=== PATIENT | male | born 1980 | race Caucasian/White ===

== ENCOUNTER 2019-08-27 12:47 | Emergency (ER) | payer MEDICAID ==
[2019-08-27] MEDS ORDERED: Sodium Chloride 0.9% 10 ML Syringe FLUSH PRN (13:46)
[2019-08-27] MEDS ORDERED: Dexamethasone 10 MG/ML SDV IVPUSH ONE (13:46)
[2019-08-27] MEDS ORDERED: Ketorolac 15 MG/ML SDV IVPUSH ONE (13:46)
[2019-08-27] MEDS ORDERED: Metoclopramide 10 MG/2 ML SDV IVPUSH ONE (13:46)
[2019-08-27] MEDS ORDERED: diphenhydrAMINE 50 MG/ML SDV IVPUSH ONE (13:46)
[2019-08-27] MEDS ORDERED: Sodium Chloride 0.9% 1,000 ML IV ONE (13:46)
[2019-08-27] MEDS ORDERED: Sodium Chloride 0.9% 2.5 ML Syringe FLUSH PRN (13:46)
[2019-08-27] MEDS ORDERED: oxyCODONE 5 MG Tab PO ONE (15:12)
--- NOTE | 2019-08-27 15:16 | EDM.PDOC ---
ED HPI GENERAL MEDICAL PROBLEM - General Chief Complaint: Headache Stated Complaint: MED REFIL Time Seen by Provider: 08/27/19 13:25 - History of Present Illness INITIAL COMMENTS - FREE TEXT/NARRATIVE: History of present illness: 39-year-old male presenting with ongoing/chronic headache exacerbated over the last few days. The patient reports history of TBI and neck injuries and a somewhat chronic migraine type symptoms. His pain regimen at home is oxycodone 30 mg, 12 tablets/day, additional oxycodone 15 mg up to 9 tablets/day, and methadone 30. Apparently the patient just moved here from [place] and ran out of all his medications. He called his neurologist who declined to refill his narcotic prescriptions and therefore he is presenting here requesting refill for his headache. Review of systems: As per history of present illness and below otherwise all systems reviewed and negative. Past medical history: As per history of present illness and as reviewed below otherwise noncontributory. TBI, neck injury Surgical history: As per history of present illness and as reviewed below otherwise noncontributory. Social history: No reported history of drug or alcohol abuse. Family history: As per history of present illness and as reviewed below otherwise noncontributory. Physical exam: GEN: no acute distress, well appearing HEENT: Atraumatic, normocephalic, mucous membranes moist Neck: supple, no meningismus. Lungs: No respiratory distress. Heart: RRR Extremities: Atraumatic. Neurovascularly intact. Neuro: Awake, alert, oriented. Neuro Exam nonfocal. Psych: No anxiety or depression, normal mood and affect Skin: warm, dry, no lesions Diagnostics: Not indicated Therapeutics: Toradol, Reglan, Decadron, IV fluids, Benadryl, oxycodone. MDM: Impression: Headache Plan: Definitive disposition and diagnosis as appropriate pending reevaluation and review of above. Headache Pain Score (Numeric/FACES): 10 - Related Data Allergies Allergy/AdvReac Type Severity Reaction Status Date / Time No Known Allergies Allergy Verified 08/27/19 14:03 Home Meds: Home Meds Methadone 30 mg PO DAILY 08/27/19 [History] oxyCODONE HCl [Oxycodone HCl] 15 mg PO ASDIRECTED 08/27/19 [History] oxyCODONE HCl [Oxycodone HCl] 120 mg PO Q4HR 08/27/19 [History] Past Medical History HEENT History: Reports: None Cardiovascular History: Reports: None Respiratory History: Reports: None Gastrointestinal History: Reports: None Genitourinary History: Reports: None Musculoskeletal History: Reports: None Neurological History: Reports: Brain Injury, Head Trauma, Migraines, Neuropathy, Peripheral Psychiatric History: Reports: Anxiety, Panic Attack Endocrine/Metabolic History: Reports: None Hematologic History: Reports: None Immunologic History: Reports: None Oncologic (Cancer) History: Reports: None Dermatologic History: Reports: None - Infectious Disease History Infectious Disease History: Reports: None - Past Surgical History Head Surgeries/Procedures: Reports: None Neurological Surgical History: Reports: C-Spine Social & Family History - Tobacco Use Smoking Status *Q: Current Some Day Smoker Years of Tobacco use: 16 Packs/Tins Daily: 0.2 - Recreational Drug Use Recreational Drug Use: Yes Drug Use in Last 12 Months: Yes Recreational Drug Type: Reports: Marijuana/Hashish Recreational Drug Use Frequency: Daily ED ROS GENERAL - Review of Systems Review Of Systems: See Below (see HPI) - Physical Exam Exam: See Below (See HPI) Course - Vital Signs Text/Narrative:: The patient is presenting with headache, requesting high level narcotic medication refills for his migraine that were denied by his own primary neurologist. I discussed at length with the patient that I would not be able to refill any of his narcotic prescriptions as he is being treated for chronic pain and will need to follow-up with his neurologist and/or see pain management. He does report that he has a pain management physician appointment in 8 days. The patient was concerned because he previously had a severe withdrawal syndrome several months ago and required ICU admission, however he does report that at that time he was taking benzodiazepines and the severe withdrawal was likely to benzodiazepines. Will give patient Toradol/Reglan/IV fluids/Decadron/Benadryl and intranasal lidocaine as well as his baseline narcotic dose. Last Recorded V/S: Last Vital Signs Temp 98.4 F 08/27/19 13:00 Pulse 68 08/27/19 13:00 Resp 16 08/27/19 13:00 BP 124/77 08/27/19 13:00 Pulse Ox 95 08/27/19 13:00 - Orders/Labs/Meds Orders: Active Orders 24 hr Category Date Time Status Saline Lock Insert [OM.PC] Stat Oth 08/27/19 13:46 Ordered Meds: Medications Discontinued Medications Generic Name Dose Route Start Last Admin Trade Name Suzy PRN Reason Stop Dose Admin Dexamethasone 8 mg 08/27/19 13:46 08/27/19 14:06 Dexamethasone IVPUSH 08/27/19 13:47 8 mg ONETIME ONE Administration Diphenhydramine HCl 50 mg 08/27/19 13:46 08/27/19 14:06 Benadryl IVPUSH 08/27/19 13:47 50 mg ONETIME ONE Administration Sodium Chloride 1,000 mls @ 999 mls/hr 08/27/19 13:46 08/27/19 14:05 Normal Saline IV 08/27/19 14:46 999 mls/hr .Bolus ONE Administration Ketorolac Tromethamine 30 mg 08/27/19 13:46 08/27/19 14:05 Toradol IVPUSH 08/27/19 13:47 30 mg ONETIME ONE Administration Lidocaine HCl 0 ml 08/27/19 16:00 08/27/19 16:07 Xylocaine 4% Top Soln TOP 08/27/19 16:01 1 ml ONETIME ONE Administration Metoclopramide HCl 10 mg 08/27/19 13:46 08/27/19 14:05 Reglan IVPUSH 08/27/19 13:47 10 mg ONETIME ONE Administration Oxycodone HCl 30 mg 08/27/19 15:12 08/27/19 16:03 Oxycodone PO 08/27/19 15:13 30 mg ONETIME ONE Administration Oxycodone HCl 30 mg 08/27/19 15:46 08/27/19 20:08 Oxycodone PO 08/27/19 15:47 Not Given ONETIME ONE Sodium Chloride 10 ml 08/27/19 13:46 08/27/19 14:06 Saline Flush FLUSH 10 ml ASDIRECTED PRN Administration Keep Vein Open Sodium Chloride 2.5 ml 08/27/19 13:46 08/27/19 14:06 Saline Flush FLUSH 2.5 ml ASDIRECTED PRN Administration Keep Vein Open - Re-Assessments/Exams Free Text/Narrative Re-Assessment/Exam: 08/27/19 15:12 Pain not improved. Additional medication ordered. 08/27/19 17:13 Assessed the patient. His pain is moderately improved. He does report that he is still having pain, however I discussed with the patient that given his high level narcotic pain regimen it is unlikely that he will achieve complete pain relief here and he does report that it is at a tolerable level where he feels well enough and would like to be discharged home. We discussed plan of follow-up care, I discussed recommendations for neurology and pain management follow-up given the patient's current regimen and need to taper high-level narcotic use. The patient does agree to do so and reports that he has an appointment with pain management within the next 10 days. We discussed the symptoms of withdrawal, what to watch out for and when to return to the emergency department if he develops any of the symptoms or any o ther concerning symptoms for a further evaluation. Neurologic examination on reassessment is unremarkable. Departure - Departure Time of Disposition: 17:14 Disposition: Home, Self-Care 01 Clinical Impression: Headache - Discharge Information Instructions: Tension Headache, Adult, [id number], Cluster Headache, Form - Headache Record, Recurrent Migraine Headache, [id number], Analgesic Rebound Headache, Pain Medicine Instructions, [id number] Referrals: PCP,Not In Area [Primary Care Provider] - Forms: ED Department Discharge Additional Instructions: The following information is given to patients seen in the emergency department who are being discharged to home. This information is to outline your options for follow-up care. We provide all patients seen in our emergency department with a follow-up referral. The need for follow-up, as well as the timing and circumstances, are variable depending upon the specifics of your emergency department visit. If you don't have a primary care physician on staff, we will provide you with a referral. We always advise you to contact your personal physician following an emergency department visit to inform them of the circumstance of the visit and for follow-up with them and/or the need for any referrals to a consulting specialist. The emergency department will also refer you to a specialist when appropriate. This referral assures that you have the opportunity for follow-up care with a specialist. All of these measure are taken in an effort to provide you with optimal care, which includes your follow-up. Under all circumstances we always encourage you to contact your private physician who remains a resource for coordinating your care. When calling for follow-up care, please make the office aware that this follow-up is from your recent emergency room visit. If for any reason you are refused follow-up, please contact the [facility] Emergency Department at and asked to speak to the emergency department charge nurse. [facility] - Primary Care [address], [place] [address] [facility] [address] [place] [id number] [facility] - Neurology Professional Building [address] [place] [address], [address] [place] [address] Sepsis Event Note (ED) - Evaluation Sepsis Screening Result: No Definite Risk - My Orders Last 24 Hours: My Active Orders 08/27/19 13:46 Saline Lock Insert [OM.PC] Stat - Assessment/Plan Last 24 Hours: My Active Orders 08/27/19 13:46 Saline Lock Insert [OM.PC] Stat
[2019-08-27] MEDS ORDERED: oxyCODONE 5 MG/5 ML Cup PO ONE (15:46)
[2019-08-27] MEDS ORDERED: Lidocaine 4% Top Soln 50 ML Bottle TOP ONE (16:00)
== END 2019-08-27 17:30 | disposition home or self-care (01) ==
LOC: MW.ED 12:47
DX: R51 Headache (principal); F17.210 Nicotine dependence, cigarettes, uncomplicated; G62.9 Polyneuropathy, unspecified; Z79.899 Other long term (current) drug therapy
CPT/HCPCS: 96374; 96375; 99283; 99284-25; A9270-GY; J1100; J1200; J1885; J2765; J7030

== ENCOUNTER 2019-09-03 05:40 | Emergency (ER) | payer OTHER ==
[2019-09-03] MEDS ORDERED: fentaNYL 50 MCG/ML SDV IVPUSH ONE (06:09)
[2019-09-03] MEDS ORDERED: Sodium Chloride 0.9% 10 ML Syringe FLUSH PRN (06:09)
[2019-09-03] MEDS ORDERED: Sodium Chloride 0.9% 2.5 ML Syringe FLUSH PRN (06:09)
[2019-09-03] MEDS ORDERED: Ondansetron 4 MG/2 ML SDV IVPUSH ONE (06:09)
[2019-09-03] MEDS ORDERED: Sodium Chloride 0.9% 1,000 ML IV ONE (06:12)
--- NOTE | 2019-09-03 06:16 | EDM.PDOC ---
<Anupam Rico - Last Filed: 09/03/19 07:37> ED HPI GENERAL MEDICAL PROBLEM - General Chief Complaint: Flank Pain Stated Complaint: KIDNEY PAIN Time Seen by Provider: 09/03/19 05:47 - History of Present Illness INITIAL COMMENTS - FREE TEXT/NARRATIVE: History of present illness: [] Patient just recently moved here because his father got a teaching job. 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 He told the nurse he does not have any narcotic abuse history. The patient severe diffuse abdominal pain increasing gradually over 3 days. It is sharp and severe in his back and radiates to his scrotum. He has vomited multiple times and has several loose stools a day. The patient was seen here 27 August 2019 for a migraine headache and withdrawal from his narcotic pain medicines that were given by methadone maintenance clinic in his prior town. She has an appointment with a neurologist in 2 days. The patient has not planned to go to the methadone maintenance clinic because the nearest 1 is too far away for him to go to. Apparently it is in [place]. The patient says he has contacted biochemistry specialist in this area none of them do methadone maintenance. Patient's migraine is under control with medications that are prior ER doctor gave him to tide him over until he sees the neurologist. Review of systems: As per history of present illness and below otherwise all systems reviewed and negative. Past medical history: As per history of present illness and as reviewed below otherwise noncontributo ry. Surgical history: As per history of present illness and as reviewed below otherwise noncontributory. Social history: No reported history of drug or alcohol abuse. Family history: As per history of present illness and as reviewed below otherwise noncontributory. Physical exam: Constitutional - well developed, well-nourished and in no acute distress HEENT - normocephalic, no evidence of trauma - external nose and mouth normal - no mass in neck and no JVD - mucosae moist EYES - full EOM, PERRL, no icterus - no evidence of inflammation, injection, or drainage Respiratory - no respiratory distress, equal bilateral expansion, lungs clear to auscultation and no abnormal lung sounds Cardiovascular - Regular Rhythm with S1 and S2 appreciated and no murmur, gallop or rub. Peripheral pulses symmetrically normal in all four extremities GI -diffuse direct tenderness with no rebound or referred tenderness. Sounds are somewhat diminished. Abdomen soft without distension or organomegaly - no guard or rebound You normal external genitalia except for 2 small apparent lipomas on the shaft of the penis. There is no hernia. Musculoskeletal no gross deformity of long bones or joints - no tenderness, swelling or edema Neurologic - Alert and oriented times four - CN II-XII grossly intact - motor sensory and coordination symmetrically normal Psychiatric - appropriate mood and affect with normal thought content Hematologic - No petechiae or purpura - mucosa appropriate color and sclera not pale - normal nail bed color and refill Integument - no rash or evidence of trauma - normal turgor Diagnostics: [] Therapeutics: [] Impression: [] Plan: [] Definitive disposition and diagnosis as appropriate pending reevaluation and review of above. Bilateral Flank Pain Score (Numeric/FACES): 10 - Related Data Allergies Allergy/AdvReac Type Severity Reaction Status Date / Time No Known Allergies Allergy Verified 09/03/19 05:59 Home Meds: Home Meds Methadone 30 mg PO DAILY 08/27/19 [History] oxyCODONE HCl [Oxycodone HCl] 15 mg PO ASDIRECTED 08/27/19 [History] oxyCODONE HCl [Oxycodone HCl] 120 mg PO Q4HR 08/27/19 [History] Acetaminophen [Acetaminophen Extra Strength] 500 - 1,000 mg PO Q6H PRN #30 tablet 09/03/19 [Rx] Loperamide HCl [Imodium A-D] 2 mg PO Q4H PRN #20 tablet 09/03/19 [Rx] Ondansetron [Zofran] 4 mg PO Q8H PRN #15 tab 09/03/19 [Rx] Potassium Chloride 40 meq PO DAILY 5 Days #10 packet 09/03/19 [Rx] Past Medical History HEENT History: Reports: None Cardiovascular History: Reports: None Respiratory History: Reports: None Gastrointestinal History: Reports: None Genitourinary History: Reports: None Musculoskeletal History: Reports: None Neurological History: Reports: Brain Injury, Head Trauma, Migraines, Neuropathy, Peripheral Psychiatric History: Reports: Anxiety, Panic Attack Endocrine/Metabolic History: Reports: None Hematologic History: Reports: None Immunologic History: Reports: None Oncologic (Cancer) History: Reports: None Dermatologic History: Reports: None - Infectious Disease History Infectious Disease History: Reports: None - Past Surgical History Head Surgeries/Procedures: Reports: None Neurological Surgical History: Reports: C-Spine Social & Family History - Family History Family Medical History: Noncontributory - Tobacco Use Smoking Status *Q: Never Smoker - Recreational Drug Use Recreational Drug Use: No ED ROS GENERAL - Review of Systems Review Of Systems: Comprehensive ROS is negative, except as noted in HPI. ED EXAM, GENERAL - Physical Exam Exam: See Below Free Text/Narrative:: Physical exam as in the HPI Departure - Departure Disposition: Home, Self-Care 01 Clinical Impression: Acute diarrhea, Hypokalemia, Acute renal insufficiency, Muscle cramps - Discharge Information Prescriptions: Acetaminophen [Acetaminophen Extra Strength] 500 - 1,000 mg PO Q6H PRN #30 tablet PRN Reason: Pain (Mild 1-3) Loperamide HCl [Imodium A-D] 2 mg PO Q4H PRN #20 tablet PRN Reason: Diarrhea Potassium Chloride 40 meq PO DAILY 5 Days #10 packet Ondansetron [Zofran] 4 mg PO Q8H PRN #15 tab PRN Reason: Nausea/Vomiting Instructions: Muscle Cramps and Spasms, [id number]-[id number], Hypokalemia, Food Choices to Help Relieve Diarrhea, Adult, Leg Cramps, Diarrhea, Adult, [id number] Referrals: [facility] - [facility] Practice [Provider Group] - 1 Week (For follow-up of low potassium and elevated creatinine.) Forms: ED Department Discharge Additional Instructions: Thank you for choosing the [facility] emergency department in [place] for your medical needs today. It was a pleasure caring for you. You were seen in the emergency department for several complaints. We noted that your potassium level is low and your creatinine level was high. This could be due to having diarrhea for quite a while. It also could be made worse by mild dehydration. We gave you IV fluids along with IV magnesium, IV potassium, and some medications for your muscle cramping. I am going to prescribe some medications for diarrhea, nausea and vomiting, and a couple more days of potassium supplementation. I will also encourage him to increase his fluid intake. He will follow-up with the family medicine clinic in the next week or so to have his labs rechecked. Please return the emergency department immediately if your symptoms worsen or if you feel worse. The following information is given to patients seen in the emergency department who are being discharged. This information is to outline your options for follow-up care. We provide all patients seen in our emergency department with a follow-up referral. The need for follow-up, as well as the timing and circumstances, are variable depending upon the specifics of your emergency department visit. If you don't have a primary care physician on staff, we will provide you with a referral. We always advise you to contact your personal physician following an emergency department visit to inform them of the circumstance of the visit and for follow-up with them and/or the need for any referrals to a consulting specialist. The emergency department will also refer you to a specialist when appropriate. This referral assures that you have the opportunity for follow-up care with a specialist. All of these measure are taken in an effort to provide you with optimal care, which includes your follow-up. Under all circumstances we always encourage you to contact your private physician who remains a resource for coordinating your care. When calling for follow-up care, please make the office aware that this follow-up is from your recent emergency room visit. If for any reason you are refused follow-up, please contact the [facility] Emergency Department at and asked to speak to the emergency department charge nurse. If you do not have a primary care physician that is caring for you, you can contact these clinics below to set up an appointment to establish care: [facility] - Primary Care [address] [place] [id number] [address] [address] Sepsis Event Note (ED) - Evaluation Sepsis Screening Result: Possible Sepsis Risk <Umair Walker - Last Filed: 09/03/19 10:16> EKG INTERPRETATION EKG Interpretation Comments: 12-Lead ECG Interpretation Acquired: 8 AM Rhythm: Sinus rhythm Rate: 86 bpm Delancey: Normal Intervals: Normal Ectopy: None Ischemic Changes: None apparent RV Strain: No obvious RV strain pattern. ST Segments/T-Waves: No notable changes Interpretation: Unremarkable Course - Vital Signs Text/Narrative:: I assumed care of this patient at [address] Anupam Rico. I independently evaluated the patient after assuming care. He still appears quite uncomfortable and is complaining of cramping to the abdomen in the bilateral lower extremities. His heart rate has normalized to the 80s. He is getting p.o. potassium replacement along with IV magnesium sulfate. He has already received some IV fluids. The CT scan of his abdomen/pelvis shows no acute pathology. Urinalysis shows small ketones. LFTs and lipase look reassuring. Creatinine slightly elevated to 1.5. Lactate is normal. CBC shows normal cell lines. Patient reports that he was febrile at triage but nursing documentation shows this is not true. He continues to complain of mild generalized abdominal tenderness to examination despite negative CT imaging. We are going to encourage p.o. fluids, and see if we can get him to eat and drink. The patient's CT scan and laboratory work-up is largely reassuring aside from hypokalemia. We are giving him some additional potassium replacement at this time. He does appear quite anxious and is complaining of having some muscle spasms so we will give him low-dose lorazepam and reevaluate to see how he is doing. 9:31 AM: The patient is feeling much better after his Ativan. His heart rate is normal. He is no longer having muscle cramping. His IV fluids are almost do ne. We will plan to discharge him home with prescriptions for Zofran, Imodium, acetaminophen, and oral potassium. We will have him follow-up with the family medicine clinic in the next week for reevaluation of his serum potassium and his creatinine level. Last Recorded V/S: Last Vital Signs Temp 36.9 C 09/03/19 07:38 Pulse 82 09/03/19 07:38 Resp 18 09/03/19 07:38 BP 120/59 L 09/03/19 07:38 Pulse Ox 99 09/03/19 07:38 - Orders/Labs/Meds Orders: Active Orders 24 hr Category Date Time Status EKG 12 Lead [EKG Documentation Completion] [RC] STAT Care 09/03/19 07:18 Active Sodium Chloride 0.9% [Saline Flush] Med 09/03/19 06:09 Active 10 ml FLUSH ASDIRECTED PRN Sodium Chloride 0.9% [Saline Flush] Med 09/03/19 06:09 Active 2.5 ml FLUSH ASDIRECTED PRN Saline Lock Insert [OM.PC] Stat Oth 09/03/19 06:10 Ordered Medication Orders Sodium Chloride (Saline Flush) 10 ml FLUSH ASDIRECTED PRN PRN Reason: Keep Vein Open Last Admin: 09/03/19 08:53 Dose: 10 ml Documented by: FIDENCIO Sodium Chloride (Saline Flush) 2.5 ml FLUSH ASDIRECTED PRN PRN Reason: Keep Vein Open Last Admin: 09/03/19 08:53 Dose: 2.5 ml Documented by: FIDENCIO Labs: Laboratory Tests 09/03/19 09/03/19 09/03/19 Range/Units 06:01 06:01 06:03 WBC 6.00 (4.0-11.0) K/uL RBC 5.39 (4.50-5.90) M/uL Hgb 16.0 (13.0-17.0) g/dL Hct 47.9 (38.0-50.0) % MCV 88.9 (80.0-98.0) fL MCH 29.7 (27.0-32.0) pg MCHC 33.4 (31.0-37.0) g/dL RDW Std Deviation 44.8 (28.0-62.0) fl RDW Coeff of Anatoly 14 (11.0-15.0) % Plt Count 176 (150-400) K/uL MPV 9.20 (7.40-12.00) fL Neut % (Auto) 89.3 H (48.0-80.0) % Lymph % (Auto) 4.0 L (16.0-40.0) % Sharkey % (Auto) 6.5 (0.0-15.0) % Eos % (Auto) 0.0 (0.0-7.0) % Baso % (Auto) 0.2 (0.0-1.5) % Neut # (Auto) 5.4 (1.4-5.7) K/uL Lymph # (Auto) 0.2 L (0.6-2.4) K/uL Sharkey # (Auto) 0.4 (0.0-0.8) K/uL Eos # (Auto) 0.0 (0.0-0.7) K/uL Baso # (Auto) 0.0 (0.0-0.1) K/uL Nucleated RBC % 0.0 /100WBC Nucleated RBCs # 0 K/uL Lactate (0.20-2.00) mmol/L Sodium 133 L (136-148) mmol/L Potassium 2.9 L (3.5-5.1) mmol/L Chloride 99 (98-107) mmol/L Carbon Dioxide 20.2 L (21.0-32.0) mmol/L BUN 13 (7.0-18.0) mg/dL Creatinine 1.5 H (0.8-1.3) mg/dL Est Cr Clr Drug Dosing 76.87 mL/min Estimated GFR (MDRD) 52.1 ml/min Glucose 119 H (74-106) mg/dL Calcium 8.5 (8.5-10.1) mg/dL Total Bilirubin 1.0 (0.2-1.0) mg/dL AST 22 (15-37) IU/L ALT 28 (14-63) IU/L Alkaline Phosphatase 71 (46-116) U/L Total Protein 8.4 H (6.4-8.2) g/dL Albumin 4.2 (3.4-5.0) g/dL Globulin 4.2 H (2.6-4.0) g/dL Albumin/Globulin Ratio 1.0 (0.9-1.6) Lipase 62 L (73-393) U/L Urine Color Urine Appearance Urine pH (5.0-8.0) Ur Specific Norborne (1.001-1.035) Urine Protein (NEGATIVE) mg/dL Urine Glucose (UA) (NEGATIVE) mg/dL Urine Ketones (NEGATIVE) mg/dL Urine Occult Blood (NEGATIVE) Urine Nitrite (NEGATIVE) Urine Bilirubin (NEGATIVE) Urine Ictotest Urine Urobilinogen (<2.0) EU/dL Ur Leukocyte Esterase (NEGATIVE) Urine RBC (0-2/HPF) Urine WBC (0-5/HPF) Ur Epithelial Cells (NONE-FEW) Amorphous Sediment (NEGATIVE) Urine Bacteria (NEGATIVE) Urine Opiates Screen NEGATIVE (NEGATIVE) Ur Oxycodone Screen POSITIVE (NEGATIVE) Urine Methadone Screen POSITIVE (NEGATIVE) Ur Barbiturates Screen NEGATIVE (NEGATIVE) Ur Phencyclidine Scrn NEGATIVE (NEGATIVE) Ur Amphetamine Screen NEGATIVE (NEGATIVE) U Methamphetamines Scrn POSITIVE (NEGATIVE) U Benzodiazepines Scrn NEGATIVE (NEGATIVE) U Cocaine Metab Screen NEGATIVE (NEGATIVE) U Marijuana (THC) Screen POSITIVE (NEGATIVE) Ethyl Alcohol <3 mg/dL 09/03/19 09/03/19 Range/Units 06:03 06:22 WBC (4.0-11.0) K/uL RBC (4.50-5.90) M/uL Hgb (13.0-17.0) g/dL Hct (38.0-50.0) % MCV (80.0-98.0) fL MCH (27.0-32.0) pg MCHC (31.0-37.0) g/dL RDW Std Deviation (28.0-62.0) fl RDW Coeff of Anatoly (11.0-15.0) % Plt Count (150-400) K/uL MPV (7.40-12.00) fL Neut % (Auto) (48.0-80.0) % Lymph % (Auto) (16.0-40.0) % Sharkey % (Auto) (0.0-15.0) % Eos % (Auto) (0.0-7.0) % Baso % (Auto) (0.0-1.5) % Neut # (Auto) (1.4-5.7) K/uL Lymph # (Auto) (0.6-2.4) K/uL Sharkey # (Auto) (0.0-0.8) K/uL Eos # (Auto) (0.0-0.7) K/uL Baso # (Auto) (0.0-0.1) K/uL Nucleated RBC % /100WBC Nucleated RBCs # K/uL Lactate 1.4 (0.20-2.00) mmol/L Sodium (136-148) mmol/L Potassium (3.5-5.1) mmol/L Chloride (98-107) mmol/L Carbon Dioxide (21.0-32.0) mmol/L BUN (7.0-18.0) mg/dL Creatinine (0.8-1.3) mg/dL Est Cr Clr Drug Dosing mL/min Estimated GFR (MDRD) ml/min Glucose (74-106) mg/dL Calcium (8.5-10.1) mg/dL Total Bilirubin (0.2-1.0) mg/dL AST (15-37) IU/L ALT (14-63) IU/L Alkaline Phosphatase (46-116) U/L Total Protein (6.4-8.2) g/dL Albumin (3.4-5.0) g/dL Globulin (2.6-4.0) g/dL Albumin/Globulin Ratio (0.9-1.6) Lipase (73-393) U/L Urine Color DARK YELLOW Urine Appearance CLOUDY Urine pH 6.0 (5.0-8.0) Ur Specific Norborne 1.025 (1.001-1.035) Urine Protein 30 H (NEGATIVE) mg/dL Urine Glucose (UA) NEGATIVE (NEGATIVE) mg/dL Urine Ketones 15 H (NEGATIVE) mg/dL Urine Occult Blood SMALL H (NEGATIVE) Urine Nitrite NEGATIVE (NEGATIVE) Urine Bilirubin MODERATE H (NEGATIVE) Urine Ictotest NEGATIVE Urine Urobilinogen 0.2 (<2.0) EU/dL Ur Leukocyte Esterase NEGATIVE (NEGATIVE) Urine RBC 0-2 (0-2/HPF) Urine WBC 0-2 (0-5/HPF) Ur Epithelial Cells RARE (NONE-FEW) Amorphous Sediment HEAVY (NEGATIVE) Urine Bacteria RARE (NEGATIVE) Urine Opiates Screen (NEGATIVE) Ur Oxycodone Screen (NEGATIVE) Urine Methadone Screen (NEGATIVE) Ur Barbiturates Screen (NEGATIVE) Ur Phencyclidine Scrn (NEGATIVE) Ur Amphetamine Screen (NEGATIVE) U Methamphetamines Scrn (NEGATIVE) U Benzodiazepines Scrn (NEGATIVE) U Cocaine Metab Screen (NEGATIVE) U Marijuana (THC) Screen (NEGATIVE) Ethyl Alcohol mg/dL Meds: Medications Generic Name Dose Route Start Last Admin Trade Name Freq PRN Reason Stop Dose Admin Sodium Chloride 10 ml 09/03/19 06:09 09/03/19 08:53 Saline Flush FLUSH 10 ml ASDIRECTED PRN Administration Keep Vein Open Sodium Chloride 2.5 ml 09/03/19 06:09 09/03/19 08:53 Saline Flush FLUSH 2.5 ml ASDIRECTED PRN Administration Keep Vein Open Discontinued Medications Generic Name Dose Route Start Last Admin Trade Name Enricoq PRN Reason Stop Dose Admin Acetaminophen 1,000 mg 09/03/19 08:30 09/03/19 08:48 Tylenol Extra Strength PO 09/03/19 08:31 1,000 mg ONETIME ONE Administration Fentanyl 50 mcg 09/03/19 06:09 09/03/19 06:25 Fentanyl IVPUSH 09/03/19 06:10 50 mcg ONETIME ONE Administration Sodium Chloride 1,000 mls @ 999 mls/hr 09/03/19 06:12 09/03/19 06:23 Normal Saline IV 09/03/19 07:12 999 mls/hr .BOLUS ONE Administration Potassium Chloride 20 meq/ 50 mls @ 25 mls/hr 09/03/19 06:44 09/03/19 07:39 Premix IV 09/03/19 08:43 Not Given ONETIME ONE Potassium Chloride/Sodium Chloride 1,000 mls @ 150 mls/hr 09/03/19 07:00 Normal Saline With 20 Meq Kcl IV ASDIRECTED JESUS Magnesium Sulfate 2 gm/ Premix 50 mls @ 50 mls/hr 09/03/19 07:17 09/03/19 08:52 IV 09/03/19 08:16 50 mls/hr ONETIME ONE Administration Potassium Chloride 20 meq/ 1,010 mls @ 505 mls/hr 09/03/19 08:45 09/03/19 09:45 Lactated Ringer's IV 09/03/19 10:44 Not Given ONETIME ONE Iopamidol 100 ml 09/03/19 07:28 09/03/19 07:28 Isovue-370 (76%) IVPUSH 09/03/19 07:29 100 ml ONETIME ONE Administration Lorazepam 0.5 mg 09/03/19 08:31 09/03/19 08:52 Ativan IVPUSH 09/03/19 08:32 0.5 mg ONETIME ONE Administration Ondansetron HCl 4 mg 09/03/19 06:09 09/03/19 06:24 Zofran IVPUSH 09/03/19 06:10 4 mg ONETIME ONE Administration Potassium Chloride 20 meq 09/03/19 06:50 09/03/19 08:49 Klor-Con M20 PO 09/03/19 06:51 20 meq ONETIME ONE Administration Potassium Chloride 40 meq 09/03/19 09:39 09/03/19 09:49 Potassium Chloride PO 09/03/19 09:40 40 meq ONETIME ONE Administration Potassium Chloride Confirm 09/03/19 09:51 Klor-Con M20 Administered 09/03/19 09:52 Dose 40 meq .ROUTE .STK-MED ONE Departure - Departure Time of Disposition: 09:32 Condition: Good - Discharge Information *PRESCRIPTION DRUG MONITORING PROGRAM REVIEWED*: Not Applicable *COPY OF PRESCRIPTION DRUG MONITORING REPORT IN PATIENT SIRENA: Not Applicable Sepsis Event Note (ED) - Focused Exam Vital Signs: Vital Signs Temp Pulse Resp BP Pulse Ox 09/03/19 07:38 36.9 C 82 18 120/59 L 99 09/03/19 05:56 36.8 C 127 H 22 H 118/59 L 96 - My Orders Last 24 Hours: My Active Orders 09/03/19 07:18 EKG 12 Lead [EKG Documentation Completion] [RC] STAT - Assessment/Plan Last 24 Hours: My Active Orders 09/03/19 07:18 EKG 12 Lead [EKG Documentation Completion] [RC] STAT
[2019-09-03 06:36] LABS: BLOOD UREA NITROGEN,BUN 13 mg/dL (7.0-18.0); CARBON DIOXIDE,CO2 20.2 mmol/L (21.0-32.0); CHLORIDE,CL 99 mmol/L (98-107); GLUCOSE RANDOM 119 mg/dL (74-106); LIPASE 62 U/L (73-393); POTASSIUM,K 2.9 mmol/L (3.5-5.1); SODIUM,NA 133 mmol/L (136-148)
[2019-09-03] MEDS ORDERED: Potassium Chloride Riders 20 MEQ in Premix Bag 1 BAG IV ONE (06:44)
[2019-09-03] MEDS ORDERED: Potassium Chloride 20 MEQ Tab.ER PO ONE ×2 (06:50→09:41)
[2019-09-03] MEDS ORDERED: NS + KCl 20mEq/L 1,000 ML IV SCH (07:00)
[2019-09-03] MEDS ORDERED: Magnesium Sulfate/Water 2 GM in Premix Bag 1 BAG IV ONE (07:17)
[2019-09-03] MEDS ORDERED: Iopamidol 755 Mg/ML 100 ML Bottle IVPUSH ONE (07:28)
--- NOTE | 2019-09-03 07:50 | CR ---
HISTORY: Pain. TECHNIQUE: One view of the chest. COMPARISON: No prior. FINDINGS: Cardiac size and pulmonary vasculature are within normal limits. There is no acute lung infiltrate or pulmonary edema. No pneumothorax or pleural effusion. No acute bony abnormality. IMPRESSION: No acute disease. Dictated by Sandor Manrique MD @ 09/03/2019 7:48:34 AM Dictated by: Sandor Manrique MD @ 09/03/2019 07:48:38 (Electronically Signed)
--- NOTE | 2019-09-03 07:56 | CT ---
HISTORY: Abdominal pain. TECHNIQUE: Intravenous contrast enhanced CT of the abdomen and pelvis. 100 mL of Isovue-370 intravenous contrast was administered. COMPARISON: No prior. FINDINGS: Small area of focal fatty infiltration within the left hepatic lobe adjacent to the falciform ligament. No biliary ductal dilatation. Gallbladder nondistended. Mild splenomegaly with the spleen measuring 14.4 cm craniocaudad. Adrenal glands are normal. No focal pancreatic abnormality. Symmetric nephrograms. No renal mass or hydronephrosis. No obstructive urinary calculus. Urinary bladder is not appear overly distended. - No small bowel obstruction. No appendicitis. No diverticulitis. No definite colitis. - Small fat containing umbilical hernia. No significant inguinal hernia. No abdominal aortic aneurysm. 1 cm portacaval lymph node. No other enlarged or prominent lymph nodes. - No consolidation within the lung bases nor pleural effusion. - Degenerative changes of the spine. No acute fractures. IMPRESSION: 1. No identified cause of the patient`s symptoms. 2. No appendicitis, bowel obstruction or diverticulitis. 3. Small fat containing umbilical hernia. 4. Mild splenomegaly. Dictated by Sandor Manrique MD @ 09/03/2019 7:54:36 AM Please note that all CT scans at this facility use dose modulation, iterative reconstruction, and/or weight-based dosing when appropriate to reduce radiation dose to as low as reasonably achievable. Dictated by: Sandor Manrique MD @ 09/03/2019 07:54:43 (Electronically Signed)
[2019-09-03] MEDS ORDERED: Acetaminophen 500 MG Tab PO ONE (08:30)
[2019-09-03] MEDS ORDERED: LORazepam 2 MG/ML SDV IVPUSH ONE (08:31)
[2019-09-03] MEDS ORDERED: Potassium Chloride 10% 20 MEQ/15 ML Soln 30 ML UD Cup PO ONE (09:39)
[2019-09-03] MEDS ORDERED: Potassium Chloride 20 MEQ Tab.ER ONE (09:51)
== END 2019-09-03 10:11 | disposition home or self-care (01) ==
LOC: MW.ED 05:40
DX: N28.9 Disorder of kidney and ureter, unspecified (principal); E87.6 Hypokalemia; R25.2 Cramp and spasm; R19.7 Diarrhea, unspecified; Z79.899 Other long term (current) drug therapy
CPT/HCPCS: 36415; 71045; 74177; 80053; 80305; 80307; 81001; 83605; 83690; 85025; 93005; 96361; 96365; 96375; 99284; A9270; J2060; J2405; J3010; J3475; J7030; Q9967; 99283

== ENCOUNTER 2020-05-16 17:28 | Emergency (ER) | payer MEDICAID, OTHER ==
[2020-05-16] MEDS ORDERED: Sodium Chloride 0.9% 2.5 ML Syringe FLUSH PRN (18:04)
[2020-05-16] MEDS ORDERED: Sodium Chloride 0.9% 10 ML Syringe FLUSH PRN (18:04)
--- NOTE | 2020-05-16 18:04 | EDM.PDOC ---
<Garett Vargas - Last Filed: 05/16/20 18:08> ED HPI GENERAL MEDICAL PROBLEM - General Chief Complaint: Genitourinary Problem Stated Complaint: LOWER BACK PAIN Time Seen by Provider: 05/16/20 17:32 Source of Information: Reports: Patient History Limitations: Reports: No Limitations - History of Present Illness INITIAL COMMENTS - FREE TEXT/NARRATIVE: 39-year-old male no past medical history presents for low back pain, nausea, decreased appetite, concentrated urine. Patient notes symptoms for about the last week. Pain is primarily in his right flank but over the last day has started to radiate to his left flank. He notes that he has not been very interested in food. He notes some nausea but has not had any episodes of vomiting. He notes that his urine, particularly a couple of days ago, appears dark and orange and his father had told him that this could be a sign of kidney infection or blood in the urine. He has no history of UTIs or renal stones that he is aware of. bilat low back Pain Score (Numeric/FACES): 8 - Related Data Allergies Allergy/AdvReac Type Severity Reaction Status Date / Time No Known Allergies Allergy Verified 05/16/20 18:02 Home Meds: Home Meds . [No Known Home Meds] 05/16/20 [History] Past Medical History HEENT History: Reports: None Cardiovascular History: Reports: None Respiratory History: Reports: None Gastrointestinal History: Reports: None Genitourinary History: Reports: None Musculoskeletal History: Reports: None Neurological History: Reports: Brain Injury, Head Trauma, Migraines, Neuropathy, Peripheral Psychiatric History: Reports: Anxiety, Panic Attack Endocrine/Metabolic History: Reports: None Hematologic History: Reports: None Immunologic History: Reports: None Oncologic (Cancer) History: Reports: None Dermatologic History: Reports: None - Infectious Disease History Infectious Disease History: Reports: None - Past Surgical History Head Surgeries/Procedures: Reports: None Neurological Surgical History: Reports: C-Spine Social & Family History - Family History Family Medical History: No Pertinent Family History ED ROS GENERAL - Review of Systems Review Of Systems: Comprehensive ROS is negative, except as noted in HPI. ED EXAM, GENERAL - Physical Exam Exam: See Below Exam Limited By: No Limitations General Appearance: Alert, WD/WN, No Apparent Distress Ears: Hearing Grossly Normal Throat/Mouth: Normal Voice, No Airway Compromise Head: Atraumatic, Normocephalic Neck: Normal Inspection Respiratory/Chest: No Respiratory Distress, Lungs Clear, Normal Breath Sounds, No Accessory Muscle Use Cardiovascular: Normal Peripheral Pulses, Regular Rate, Rhythm GI/Abdominal: Soft, Non-Tender Back Exam: CVA Tenderness (R). No: CVA Tenderness (L) Extremities: Normal Inspection Neurological: Alert, Normal Gait Psychiatric: Normal Affect, Normal Mood Skin Exam: Warm, Dry, Intact, Normal Color Course - Re-Assessments/Exams Free Text/Narrative Re-Assessment/Exam: 05/16/20 18:09 We will get labs, CT imaging to rule out stone, urinalysis. Departure - Departure Disposition: Home, Self-Care 01 Clinical Impression: Biliary colic, Choledocholithiasis - Discharge Information Instructions: Biliary Colic, Adult Referrals: PCP,None [Primary Care Provider] - Forms: ED Department Discharge Additional Instructions: [facility] - General Surgery [address], [address] [place] [address] The following information is given to patients seen in the emergency department who are being discharged to home. This information is to outline your options for follow-up care. We provide all patients seen in our emergency department with a follow-up referral. The need for follow-up, as well as the timing and circumstances, are variable depending upon the specifics of your emergency department visit. If you don't have a primary care physician on staff, we will provide you with a referral. We always advise you to contact your personal physician following an emergency department visit to inform them of the circumstance of the visit and for follow-up with them and/or the need for any referrals to a consulting specialist. The emergency department will also refer you to a specialist when appropriate. This referral assures that you have the opportunity for follow-up care with a specialist. All of these measure are taken in an effort to provide you with optimal care, which includes your follow-up. Under all circumstances we always encourage you to contact your private physician who remains a resource for coordinating your care. When calling for follow-up care, please make the office aware that this follow-up is from your recent emergency room visit. If for any reason you are refused follow-up, please contact the [facility] Emergency Department at and asked to speak to the emergency department charge nurse. If you have a high fever especially if you have more abdominal pain vomiting or confusion while you have a high fever. Sepsis Event Note (ED) - Evaluation Sepsis Screening Result: No Definite Risk <Anupam Rico - Last Filed: 05/16/20 23:06> Course - Vital Signs Text/Narrative:: 1927 hrs. the patient is having his pain recur. It is in the right flank. He also is nauseated. I picked the patient up at shift change from my partner who initiated CT scan. The CT showed gallstones and possible thickening of the gallbladder wall. Ultrasound has been ordered and I will medicate the patient while I await the results. Of note he leaves in 3 days to work in [place]. 20 1:26 PM the patient on ultrasound has multiple stones. His transaminases are elevated. His bilirubin is normal. He has positive bilirubin ictotest in the urine. The patient has intense unbearable pain in the right upper quadrant and right flank. Discussed with Dr. Francsi and he will see the patient and make a disposition. It appears that the patient's not can make his trip to [place] and going to need to have his gallbladder out. 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 Last Recorded V/S: Last Vital Signs Temp 37.2 C 05/16/20 22:28 Pulse 77 05/16/20 22:28 Resp 18 05/16/20 22:28 BP 127/62 05/16/20 22:28 Pulse Ox 98 05/16/20 22:28 - Orders/Labs/Meds Orders: Active Orders 24 hr Category Date Time Status Sodium Chloride 0.9% [Saline Flush] Med 05/16/20 18:04 Active 10 ml FLUSH ASDIRECTED PRN Sodium Chloride 0.9% [Saline Flush] Med 05/16/20 18:04 Active 2.5 ml FLUSH ASDIRECTED PRN Saline Lock Insert [OM.PC] Stat Oth 05/16/20 18:05 Ordered Medication Orders Sodium Chloride (Sodium Chloride 0.9% 10 Ml Syringe) 10 ml FLUSH ASDIRECTED PRN PRN Reason: Keep Vein Open Last Admin: 05/16/20 18:55 Dose: 10 ml Documented by: [id number] Sodium Chloride (Sodium Chloride 0.9% 2.5 Ml Syringe) 2.5 ml FLUSH ASDIRECTED PRN PRN Reason: Keep Vein Open Last Admin: 05/16/20 18:55 Dose: 2.5 ml Documented by: [id number] Labs: Laboratory Tests 05/16/20 05/16/20 05/16/20 Range/Units 17:50 18:50 18:50 WBC 10.25 (4.0-11.0) K/uL RBC 5.50 (4.50-5.90) M/uL Hgb 17.1 H (13.0-17.0) g/dL Hct 50.8 H (38.0-50.0) % MCV 92.4 (80.0-98.0) fL MCH 31.1 (27.0-32.0) pg MCHC 33.7 (31.0-37.0) g/dL RDW Std Deviation 45.5 (28.0-62.0) fl RDW Coeff of Anatoly 13 (11.0-15.0) % Plt Count 273 (150-400) K/uL MPV 9.90 (7.40-12.00) fL Neut % (Auto) 77.9 (48.0-80.0) % Lymph % (Auto) 15.5 L (16.0-40.0) % [place] % (Auto) 5.3 (0.0-15.0) % Eos % (Auto) 1.1 (0.0-7.0) % Baso % (Auto) 0.2 (0.0-1.5) % Neut # (Auto) 8.0 H (1.4-5.7) K/uL Lymph # (Auto) 1.6 (0.6-2.4) K/uL [place] # (Auto) 0.5 (0.0-0.8) K/uL Eos # (Auto) 0.1 (0.0-0.7) K/uL Baso # (Auto) 0.0 (0.0-0.1) K/uL Nucleated RBC % 0.0 /100WBC Nucleated RBCs # 0 K/uL Sodium 140 (136-148) mmol/L Potassium 3.9 (3.5-5.1) mmol/L Chloride 103 (98-107) mmol/L Carbon Dioxide 27.4 (21.0-32.0) mmol/L BUN 10 (7.0-18.0) mg/dL Creatinine 1.3 (0.8-1.3) mg/dL Est Cr Clr Drug Dosing 91.18 mL/min Estimated GFR (MDRD) > 60.0 ml/min Glucose 99 (74-106) mg/dL Calcium 9.3 (8.5-10.1) mg/dL Total Bilirubin 1.0 (0.2-1.0) mg/dL AST 145 H (15-37) IU/L ALT 344 H (14-63) IU/L Alkaline Phosphatase 259 H (46-116) U/L Total Protein 8.3 H (6.4-8.2) g/dL Albumin 4.0 (3.4-5.0) g/dL Globulin 4.3 H (2.6-4.0) g/dL Albumin/Globulin Ratio 0.9 (0.9-1.6) Lipase (73-393) U/L Urine Color YELLOW Urine Appearance HAZY Urine pH 7.0 (5.0-8.0) Ur Specific [place] 1.025 (1.001-1.035) Urine Protein TRACE H (NEGATIVE) mg/dL Urine Glucose (UA) NEGATIVE (NEGATIVE) mg/dL Urine Ketones 15 H (NEGATIVE) mg/dL Urine Occult Blood NEGATIVE (NEGATIVE) Urine Nitrite NEGATIVE (NEGATIVE) Urine Bilirubin MODERATE H (NEGATIVE) Urine Ictotest POSITIVE Urine Urobilinogen 0.2 (<2.0) EU/dL Ur Leukocyte Esterase TRACE H (NEGATIVE) Urine RBC 2-3 (0-2/HPF) Urine WBC 3-6 (0-5/HPF) Ur Epithelial Cells OCCASIONAL (NONE-FEW) Amorphous Sediment MODERATE (NEGATIVE) Urine Bacteria FEW (NEGATIVE) Urine Mucus MODERATE (NONE-MOD) Urine Sperm RARE (NEGATIVE) SARS-CoV-2 RNA (GINO) (NEGATIVE) 05/16/20 05/16/20 Range/Units 18:50 21:15 WBC (4.0-11.0) K/uL RBC (4.50-5.90) M/uL Hgb (13.0-17.0) g/dL Hct (38.0-50.0) % MCV (80.0-98.0) fL MCH (27.0-32.0) pg MCHC (31.0-37.0) g/dL RDW Std Deviation (28.0-62.0) fl RDW Coeff of Anatoly (11.0-15.0) % Plt Count (150-400) K/uL MPV (7.40-12.00) fL Neut % (Auto) (48.0-80.0) % Lymph % (Auto) (16.0-40.0) % [place] % (Auto) (0.0-15.0) % Eos % (Auto) (0.0-7.0) % Baso % (Auto) (0.0-1.5) % Neut # (Auto) (1.4-5.7) K/uL Lymph # (Auto) (0.6-2.4) K/uL [place] # (Auto) (0.0-0.8) K/uL Eos # (Auto) (0.0-0.7) K/uL Baso # (Auto) (0.0-0.1) K/uL Nucleated RBC % /100WBC Nucleated RBCs # K/uL Sodium (136-148) mmol/L Potassium (3.5-5.1) mmol/L Chloride (98-107) mmol/L Carbon Dioxide (21.0-32.0) mmol/L BUN (7.0-18.0) mg/dL Creatinine (0.8-1.3) mg/dL Est Cr Clr Drug Dosing mL/min Estimated GFR (MDRD) ml/min Glucose (74-106) mg/dL Calcium (8.5-10.1) mg/dL Total Bilirubin (0.2-1.0) mg/dL AST (15-37) IU/L ALT (14-63) IU/L Alkaline Phosphatase (46-116) U/L Total Protein (6.4-8.2) g/dL Albumin (3.4-5.0) g/dL Globulin (2.6-4.0) g/dL Albumin/Globulin Ratio (0.9-1.6) Lipase 109 (73-393) U/L Urine Color Urine Appearance Urine pH (5.0-8.0) Ur Specific [place] (1.001-1.035) Urine Protein (NEGATIVE) mg/dL Urine Glucose (UA) (NEGATIVE) mg/dL Urine Ketones (NEGATIVE) mg/dL Urine Occult Blood (NEGATIVE) Urine Nitrite (NEGATIVE) Urine Bilirubin (NEGATIVE) Urine Ictotest Urine Urobilinogen (<2.0) EU/dL Ur Leukocyte Esterase (NEGATIVE) Urine RBC (0-2/HPF) Urine WBC (0-5/HPF) Ur Epithelial Cells (NONE-FEW) Amorphous Sediment (NEGATIVE) Urine Bacteria (NEGATIVE) Urine Mucus (NONE-MOD) Urine Sperm (NEGATIVE) SARS-CoV-2 RNA (GINO) NEGATIVE (NEGATIVE) Meds: Medications Generic Name Dose Route Start Last Admin Trade Name Freq PRN Reason Stop Dose Admin Sodium Chloride 10 ml 05/16/20 18:04 05/16/20 18:55 Sodium Chloride 0.9% 10 Ml Syringe FLUSH 10 ml ASDIRECTED PRN Administration Keep Vein Open Sodium Chloride 2.5 ml 05/16/20 18:04 05/16/20 18:55 Sodium Chloride 0.9% 2.5 Ml Syringe FLUSH 2.5 ml ASDIRECTED PRN Administration Keep Vein Open Discontinued Medications Generic Name Dose Route Start Last Admin Trade Name Freq PRN Reason Stop Dose Admin Fentanyl 50 mcg 05/16/20 19:28 05/16/20 19:52 Fentanyl 50 Mcg/Ml Sdv IVPUSH 05/16/20 19:29 50 mcg ONETIME ONE Administration Hydromorphone HCl 1 mg 05/16/20 21:19 05/16/20 21:38 Hydromorphone 1 Mg/Ml Syringe IVPUSH 05/16/20 21:20 1 mg ONETIME ONE Administration Sodium Chloride 1,000 mls @ 999 mls/hr 05/16/20 18:07 05/16/20 19:02 Normal Saline IV 05/16/20 19:07 250 mls/hr .Bolus ONE Infusion Sodium Chloride 1,000 mls @ 2,000 mls/hr 05/16/20 21:17 05/16/20 21:39 Normal Saline IV 05/16/20 21:46 2,000 mls/hr .Bolus ONE Administration Piperacillin Sod/Tazobactam 100 mls @ 100 mls/hr 05/16/20 21:54 05/16/20 22:25 Sod 4.5 gm/ Sodium Chloride IV 05/16/20 22:53 100 mls/hr ONETIME ONE Administration Ketorolac Tromethamine 15 mg 05/16/20 18:07 05/16/20 18:54 Ketorolac 30 Mg/Ml Sdv IVPUSH 05/16/20 18:08 15 mg ONETIME ONE Administration Ondansetron HCl 4 mg 05/16/20 18:07 05/16/20 18:54 Ondansetron 4 Mg/2 Ml Sdv IVPUSH 05/16/20 18:08 4 mg ONETIME ONE Administration Ondansetron HCl 4 mg 05/16/20 19:28 05/16/20 19:52 Ondansetron 4 Mg/2 Ml Sdv IVPUSH 05/16/20 19:29 4 mg ONETIME ONE Administration Departure - Departure Time of Disposition: 23:06 Condition: Good Sepsis Event Note (ED) - Focused Exam Vital Signs: Vital Signs Temp Pulse Resp BP Pulse Ox 05/16/20 22:28 37.2 C 77 18 127/62 98 05/16/20 21:40 37.2 C 86 18 130/71 97 05/16/20 19:30 86 18 128/74 97 05/16/20 17:58 36.4 C 112 H 18 128/68 97
[2020-05-16] MEDS ORDERED: Sodium Chloride 0.9% 1,000 ML IV ONE ×2 (18:07→21:17)
[2020-05-16] MEDS ORDERED: Ondansetron 4 MG/2 ML SDV IVPUSH ONE ×2 (18:07→19:28)
[2020-05-16] MEDS ORDERED: Ketorolac 30 MG/ML SDV IVPUSH ONE (18:07)
--- NOTE | 2020-05-16 19:09 | CT ---
INDICATION: Right flank pain x [address] ABDOMEN AND PELVIS WITHOUT CONTRAST TECHNIQUE: Multidetector CT imaging was performed through the abdomen and pelvis without intravenous contrast administration. Coronal and sagittal reconstructions were generated. COMPARISON: 09/03/2019 CT abdomen and pelvis. FINDINGS: Lower chest: Lung bases are clear. Liver: Within normal limits. Gallbladder and bile ducts: Probable cholelithiasis, as on image 70 of series 201. Question of mild gallbladder wall thickening. No biliary dilation identified. Pancreas: Unremarkable. Spleen: Normal. Adrenals: No nodules or masses. Kidneys, ureters, and urinary bladder: No urinary tract stones identified. No renal masses or hydronephrosis. No bladder mass or definite wall thickening. Gastrointestinal tract and abdominal wall: Normal caliber bowel without wall thickening. The appendix is normal. Unchanged fat-containing umbilical hernia. Vascular structures: Normal for age. Peritoneum: No free air, abscess, or significant free fluid. Lymph nodes: No pathologically enlarged nodes identified. Reproductive organs: No pelvic masses. Bones: Degenerative disc disease at L4-5. IMPRESSION: 1. Probable cholelithiasis. Question of mild gallbladder wall thickening, raising concern for possible cholecystitis. Gallbladder ultrasound is recommended for further evaluation. 2. No urinary tract stones or hydronephrosis. HENRY CRUZ MD [employer] [employer] Dictated by Gildardo Cruz MD @ 05/16/2020 7:06:37 PM Dictated by: Gildardo Cruz MD @ 05/16/2020 19:09:08 (Electronically Signed)
[2020-05-16 19:25] LABS: BLOOD UREA NITROGEN,BUN 10 mg/dL (7.0-18.0); CARBON DIOXIDE,CO2 27.4 mmol/L (21.0-32.0); CHLORIDE,CL 103 mmol/L (98-107); GLUCOSE RANDOM 99 mg/dL (74-106); POTASSIUM,K 3.9 mmol/L (3.5-5.1); SODIUM,NA 140 mmol/L (136-148)
[2020-05-16] MEDS ORDERED: fentaNYL 50 MCG/ML SDV IVPUSH ONE (19:28)
--- NOTE | 2020-05-16 20:56 | US ---
INDICATION: Right upper quadrant pain TECHNIQUE: Ultrasound abdomen limited. Sonographic images of the right upper quadrant were obtained using hunter-scale and color Doppler images. COMPARISON: CT abdomen pelvis from earlier today FINDINGS: Liver: Normal in size and echotexture. No masses. No intrahepatic biliary dilatation. Gallbladder: There are multiple mobile tiny stones, sludge, and a 1.9 centimeter stone within the gallbladder. Normal wall thickness. No pericholecystic fluid. Sonographic Tidwell`s sign is positive. Common bile duct: 1.2 cm Pancreas: Suboptimal visualization. Right kidney: 9.9 cm. Normal echotexture and cortex. No masses, stones, or hydronephrosis. Vasculature: Proximal abdominal aorta and IVC are normal. IMPRESSION: Cholelithiasis and gallbladder sludge with positive sonographic Tidwell`s sign. There is normal wall thickness and no pericholecystic fluid. Findings are indeterminate for acute cholecystitis. Dilatation of the common bile duct. Choledocholithiasis cannot be excluded. Dictated by Caitlyn Sorensen MD @ May 16 2020 8:50PM Signed by Dr. Caitlyn Sorensen @ May 16 2020 8:54PM
[2020-05-16] MEDS ORDERED: HYDROmorphone 1 MG/ML Syringe IVPUSH ONE (21:19)
[2020-05-16] MEDS ORDERED: Piperacillin/Tazobactam 4.5 GM in Sodium Chloride 0.9% 100 ML IV ONE (21:54)
--- NOTE | 2020-05-17 01:58 | ER ---
HISTORY OF PRESENT ILLNESS: The patient is a pleasant 39-year-old gentleman, who said about 5 days ago, he started having severe more right flank pain. He thought it was more gas pain and lasted for several hours. He said that it got moderately better for a day or so, but then he was also having nausea and vomiting. Also, said he was having quite a bit of loose stools. The patient states the pain migrated more in his right lower back and occasionally left lower back. Every time he ate, he got quite a bit of nausea and vomited up. He says the pain is not fairly constant, again starts in his right flank and kind of moves to his left lower back. The patient said it feels kind of like cramping. He also noticed that his urination became minimal and more concentrated. He denies any fevers or having some chills. He came in today because his urine was darker and with his lower back pain, he was worried about kidney infection. He came in, he was evaluated in the ER. He did have a CT scan which showed possible cholelithiasis. He had an ultrasound which showed a gallbladder with multiple gallstones and sludge. No more gallbladder wall thickening. No pericholecystic fluid. Common bile duct was 1.2 cm. The patient says currently he is feeling quite a bit better. He says with IV fluids, he is still having nausea. He is actually starting to feel hungry again. PAST MEDICAL HISTORY: The patient really denies any. CURRENT HOME MEDICATIONS: He denies any current home medications. ALLERGIES: The patient denies any allergies. No known drug allergies. PAST SURGICAL HISTORY: The patient denies any. FAMILY HISTORY: 1. Grandmother with leukemia. 2. Grandfather with prostate cancer. SOCIAL HISTORY: 1. The patient smokes half a pack of cigarettes per day. 2. 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 This is no longer the case. 3. Occasional alcohol use. REVIEW OF SYSTEMS: Complete 12 plus review of systems was done and was negative except for the HPI. In general, the patient says he has just been feeling tired, chills, nausea and vomiting and loose stools over the last 5 days. IMAGING: As per HPI. LABORATORY DATA: White cell count is 10.25, hemoglobin is 17.1, platelet count is 273. Sodium 140, potassium 3.9, chloride 103, bicarb is 27.4, BUN 10, creatinine 1.3, glucose is 99, calcium 9.3, total bilirubin is 1, AST is 105, ALT is 344, alk phosphatase is 259, lipase is 109. COVID is negative. PHYSICAL EXAMINATION: GENERAL: The patient is lying comfortably in his ER bed. He is alert and oriented, in no distress. VITAL SIGNS: Temperature is 98.9, pulse is 77, , saturating 98% on room air, blood pressure is 127/62. HEENT: Head is normocephalic, atraumatic. LUNGS: Clear to auscultation bilaterally. No rhonchi or wheezing heard. HEART: Regular rate and rhythm. No murmur appreciated. ABDOMEN: Soft and nondistended. He does have umbilical hernia, not able to fully reduce. Some minimal right-sided tenderness. Again, more flank and lower back pain to palpation on the right side. EXTREMITIES: No edema. NEUROLOGIC: Gross motor neurologic deficit noted. ASSESSMENT AND PLAN: This is a pleasant 39-year-old gentleman who has had nausea, vomiting, diarrhea for the past 5 days. He is not really eating or drinking much and noting his urine was coming more concentrated and was having some right flank pain that moved to more right lower and sometimes left lower pain. The patient did have a CT ultrasound that showed that the patient did have some gallstones. No gallbladder thickening. However, he did have some slight elevation in his LFTs. The patient potentially might have some symptomatic cholelithiasis. The patient also could have some gastroenteritis with nausea, vomiting, and diarrhea. I did go over with the patient what the gallbladder was, went over its functionality, went over treatment of biliary colic. Currently, the patient does not have a white cell count. His abdominal pain is becoming much better. His pain was also more right lateral flank and right lower back pain, but this is also improving. The patient should be admitted to the hospital for some more hydration, potentially could do a laparoscopic cholecystectomy. Went over risks, goals, alternatives of the procedure. Also, went over that since his cholelithiasis. He could go and have this done as an elective procedure. I went over the risks of waiting that he could have another gallbladder attack or could turn into more of a cholecystitis picture. This also could just be gastroenteritis. The patient currently since he is feeling better and is hungry, he would like to go home. He promises to come back if the pain returns. I did discuss this with the ER physician. JOSE JONES /[id number]
== END 2020-05-16 23:25 | disposition home or self-care (01) ==
LOC: MW.ED 17:28
DX: R10.9 Unspecified abdominal pain (principal); R11.2 Nausea with vomiting, unspecified; Z20.822 Contact with and (suspected) exposure to COVID-19
CPT/HCPCS: 36415; 74176; 76705; 80053; 81001; 83690; 85025; 87635; 96365; 96375; 96376; 99284; J1170; J1885; J2405; J2543; J3010; J7030; 99283; U0002